=== PATIENT | male | born 1960 | race Caucasian/White ===

== ENCOUNTER 2019-04-26 08:05 | Outpatient (REF) | payer BC, SELFPAY ==
[2019-04-26 12:29] LABS: Abs Immature Grans 0.01 k/cumm (0.0-0.09); Absolute Basophil Count 0.03 k/cumm (0.0-0.2); Absolute Eosinophil Count 0.12 k/cumm (0.0-0.7); Absolute Monocyte Count 1.04 k/cumm (0.11-0.7); Absolute Neutrophil Count 5.03 k/cumm (1.2-6.7); Basophils % 0.4; Eosinophils % 1.5; HCT 52.3 % (40.0-50.0); HGB 17.8 g/dL (13.5-17.5); Immature Grans % 0.1; Lymphocytes % 21.4; Mean Corpuscular Volume 96.9 fL (80-95); Mean Platelet Volume 10.7 fL (8.0-11.0); Monocytes % 13.1; Neutrophils % 63.5; Platelet Count 183 x1000/uL (130-400); RBC Distribution Width 13.1 % (11.8-14.1); White Blood Cell Count 7.93 k/cumm (4.4-10.8)
[2019-04-26 12:52] LABS: ALT 95 U/L (12-78); AST 36 U/L (15-37); Albumin 3.8 g/dL (3.4-5.0); Alkaline Phosphatase 80 U/L (46-116); Anion Gap 10.5 mmol/L (3-11); BUN 21 mg/dL (7-18); Bilirubin, Total 0.5 mg/dL (0.2-1.0); CO2 26.5 mmol/L (21.0-32.0); CREATININE 0.88 mg/dL (0.70-1.30); Calcium 8.6 mg/dL (8.5-10.1); Calculated LDL 114; Chloride 104 mmol/L (98-107); Cholesterol 172 mg/dL (50-200); Glucose 118 mg/dL (70-100); HDL Cholesterol 52 mg/dL (40-60); Potassium 4.7 mmol/L (3.5-5.1); Sodium 141 mmol/L (136-145); Total Protein 7.1 g/dL (6.4-8.2); Triglyceride 33 mg/dL (30-150)
== END 2019-04-26 08:25 ==
LOC: NCHCN 08:05
PROVIDERS: PCP Nurse Practitioner Family; Visit Provider Nurse Practitioner Family
DX: Z13.1 Encounter for screening for diabetes mellitus (principal); Z13.228 Encounter for screening for other metabolic disorders; Z13.220 Encounter for screening for lipoid disorders; Z00.00 Encounter for general adult medical examination without abnormal findings
CPT/HCPCS: 80053; 80061; 83721; 85025

== ENCOUNTER 2019-06-14 19:36 | Outpatient (REF) | payer BC, SELFPAY ==
[2019-06-14 18:29] LABS: BUN 17 mg/dL (7-18); CREATININE 0.96 mg/dL (0.70-1.30); Calcium 9.1 mg/dL (8.5-10.1); Chloride 102 mmol/L (98-107); Glucose 97 mg/dL (70-100); Potassium 3.8 mmol/L (3.5-5.1); Sodium 141 mmol/L (136-145)
== END 2019-06-14 19:56 ==
LOC: NCHCN 19:36
PROVIDERS: PCP Nurse Practitioner Family; Visit Provider Nurse Practitioner Family
DX: I10 Essential (primary) hypertension (principal); E78.2 Mixed hyperlipidemia
CPT/HCPCS: 80048

== ENCOUNTER 2019-08-16 08:56 | Outpatient (REF) | payer BC, SELFPAY ==
[2019-08-16 18:56] LABS: Anion Gap 12.7 mmol/L (3-11); BUN 14 mg/dL (7-18); CO2 25.3 mmol/L (21.0-32.0); CREATININE 0.86 mg/dL (0.70-1.30); Calcium 8.7 mg/dL (8.5-10.1); Chloride 100 mmol/L (98-107); Glucose 112 mg/dL (70-100); Sodium 138 mmol/L (136-145)
== END 2019-08-16 09:16 ==
LOC: NCHCN 08:56
PROVIDERS: PCP Nurse Practitioner Family; Visit Provider Nurse Practitioner Family
DX: I10 Essential (primary) hypertension (principal)
CPT/HCPCS: 80048

== ENCOUNTER 2020-05-13 08:10 | Outpatient (REF) | payer BC, SELFPAY ==
[2020-05-13 18:50] LABS: Anion Gap 12.3 mmol/L (3-11); BUN 19 mg/dL (7-18); CO2 22.7 mmol/L (21.0-32.0); CREATININE 0.88 mg/dL (0.70-1.30); Calcium 9.4 mg/dL (8.5-10.1); Calculated LDL 83 mg/dL (<100); Chloride 103 mmol/L (98-107); Cholesterol 149 mg/dL (<200); Glucose 125 mg/dL (74-106); HDL Cholesterol 58 mg/dL (40-60); Potassium 4.7 mmol/L (3.5-5.1); Sodium 138 mmol/L (136-145); Triglyceride 42 mg/dL (<150)
[2020-05-13 18:51] LABS: HGB 17.7 g/dL (13.5-17.5); Mean Corpuscular Hemoglobin 33.2 pg (27.0-33.0); Mean Corpuscular Volume 97.6 fL (80-95); Mean Platelet Volume 10.9 fL (8.0-11.0); Platelet Count 205 x1000/uL (130-400); RBC 5.33 m/cumm (4.50-6.00); RBC Distribution Width 13.9 % (11.8-14.1); White Blood Cell Count 6.94 k/cumm (4.4-10.8)
== END 2020-05-13 08:30 ==
LOC: NCHCN 08:10
PROVIDERS: PCP Nurse Practitioner Family; Visit Provider Nurse Practitioner Family
DX: E78.2 Mixed hyperlipidemia (principal); I10 Essential (primary) hypertension
CPT/HCPCS: 80048; 80061; 85027

== ENCOUNTER 2020-06-26 00:52 | Outpatient (CLI) | payer BC, SELFPAY ==
--- NOTE | 2020-06-26 | DI.CTLCSR_ITS ---
EXAM: CT CHEST LUNG CANCER SCREEN CLINICAL HISTORY: TOBACCO DEPENDENT,F17.200,SCREENING FOR LUNG CA TECHNIQUE: Imaging Protocol: Axial computed tomography images with coronal and sagittal reformatted images were created and reviewed COMPARISON: No exams were available for comparison FINDINGS: Tracheobronchial tree: Patent where visualized. Mediastinum and Meryl: No dominant adenopathy or fluid collection. Pulmonary parenchyma: No consolidation or dominant measurable mass. No significant emphysematous or f ibrotic changes. Lung Nodules: There are several tiny nodule in the left upper lobe measuring 2-3 cm. There is a 5 mi llimeter not nodule versus scarring at the minor fissure. Pleura: No effusion or pneumothorax. Heart: The heart is not dilated. Mild coronary artery calcifications are seen. Aorta: Thoracic aorta non-dilated. Mild calcifications Upper abdomen: Unremarkable. Bones: Mild degenerative disc changes. Soft Tissues: Unremarkable. IMPRESSION: Several tiny left upper lobe nodules. No suspicious nodules. Lung RADS Cat 2 - Benign Appearance / Behavior: Nodules with a very low likelihood of becoming a clin ically active cancer due to size or lack of growth modifier S Lung-RADS 1.0 CATEGORIES: Category 0 - Prior chest CT exam(s) being located for comparison. Category 1 - Annual screening in 12 months. No nodules or definitely benign nodules. Category 2 - Annual screening in 12 months. Benign appearance. Nodules with low likelihood of becomin g active cancer. Category 3 - 6-month follow-up. Probably benign. Short-term follow-up suggested. Nodules with low lik elihood of becoming active cancer. Category 4A - 3-month follow-up and CT/PET if >8 mm in size. Suspicious finding. Findings which requi re additional testing. Category 4B - Findings which require additional testing and tissue sampling. Suspicious finding. C Added to Any of the Above - History of prior lung cancer screening. S Added to Any of the Above - Significant unexpected other finding. RADIATION DOSE DELIVERED: 88.41mGy.cm Total DLP DATA REPOSITORY: All CT scans at this facility are submitted to the National Radiology Data Registry (NRDR) Dose Index Registry (DIR) with the [employer] (ACR). RADIATION OPTIMIZATION: All CT scans at this facility use at least one of these dose optimization te chniques: automated exposure control; mA and/or kV adjustment per patient size (includes targeted exa ms where dose is matched to clinical indication); or iterative reconstruction.
== END 2020-06-26 01:12 ==
PROVIDERS: PCP Nurse Practitioner Family; Visit Provider Family Medicine
DX: Z12.2 Encounter for screening for malignant neoplasm of respiratory organs (principal); F17.200 Nicotine dependence, unspecified, uncomplicated; R91.8 Other nonspecific abnormal finding of lung field
CPT/HCPCS: G0297

== ENCOUNTER 2020-08-08 06:46 | Day surgery (SDC) | payer BC, SELFPAY ==
[2020-08-08 07:00] VITALS: BP 138/82; PULSE 79; RESP 16; TEMP 37.1; O2SAT 97
[2020-08-08] MEDS: Lactated Ringers 1,000 ML 80 ML IV (07:30)
--- NOTE | 2020-08-08 08:27 | BOWEL_PTH ---
PATIENT: Norm Berry LOC: [facility] U#:[id number] AGE/SX: 60/M ROOM: RE08/08/[address]: Rebekah Hargrove MD : [id number] BED: DIS: 08/08/2020 SPEC #: [id number] RECD: 08/08/20 12:42 STATUS: VERO REQ #: [id number] HILARIO: 08/08/20 08:[address]: Rebekah Hargrove DEPT: Surgical Specimen RECD BY: Ronda Carrington ENTERED: 08/08/20 12:43 SP TYPE: Bowel OTHR DR: Enrique Giullen Tissues: 1 - BIOPSY BOWEL Procedures: GROSS AND MICRO LEVEL 4 Comments: [id number]
--- NOTE | 2020-08-08 08:43 | W.PM.DSUDISC ---
Discharge Plan Disposition Patient Disposition: HOME Condition: Good Discharge Details Reason For Visit: Colonoscopy Attending Provider: Rebekah Hargrove Primary Care Provider: Enrique Guillen Home Meds and New Rx's Prescriptions: Continued amlodipine 5 mg tablet 5 mg PO DAILY RF: 0 lisinopril 10 mg tablet 10 mg PO DAILY RF: 0 simvastatin 20 mg tablet 20 mg PO QHS RF: 0 hydrochlorothiazide 25 mg tablet 25 mg PO DAILY RF: 0 nicotine [Nicoderm CQ] 14 mg/24 hr patch 24 hour 1 patch TD DAILY RF: 0 Discharge Instructions Additional Instructions: Findings: One large polyp was removed. My office will contact you with biopsy results. Follow up: Plan for a colonoscopy in 3 years depending on biopsy results. Please call if you develop: fevers >101.5 Nausea or Vomiting Abdominal pain that is not transient DAY SURGERY UNIT POST COLONOSCOPY INSTRUCTIONS 1. Because there will be medication in your system for the next 24 hours, you may feel a little sleepy. Your coordination will be affected. Therefore: a. Do not drive or operate dangerous equipment for 24 hours. b. Do not drink alcohol beverages for 24 hours (not even beer). c. Plan to go home and rest for the day. 2. Generally there are no restrictions on your activity after a day or so has gone by, but you may feel a bit fatigued for a few days. 3 After you arrive home you may have a light meal and return to a normal diet as you can tolerate it without feeling sick to your stomach. 4. After surgery, you may feel pain or discomfort. This should be only transient, but if it persists please contact your doctor. 5. If there are any questions regarding the findings of your procedure, please feel free to contact your doctor. 6. If you are unable to contact your doctor with a problem, contact the hospital at [phone]. 7. Continue all your regular medications unless directed otherwise. I understand the above instructions and have no questions. Signature of Patient or Responsible Adult Escort Date/Time Name of Responsible Adult Escort Signature of Nurse Date/Time Activity:: Activity as Tolerated Diet:: As Tolerated Discharge Orders Discharge Orders: Discharge Order (Routine); Ordered 08/08/20 Ordered By: Rebekah Hargrove DS: Diagnosis Discharge Diagnosis (1) Colon polyp: Status: Acute
--- NOTE | 2020-08-08 08:44 | W.COLOREPORT ---
Date of service: 08/08/20 Time of Service: 08:44 Colonoscopy Report Date of procedure: 08/08/20 Pre-op diagnosis general: Screening Post-op diagnosis procedure note: other (Polyp at 20cm) Procedure: Colonoscopy with snare polypectomy Surgeon: Rebekah Hargrove Anesthesia proc note operative: MAC Indications: This 60 year old man presents for his first screening colonoscopy. No FH of colon cancer, no symptoms. Procedure Description: The patient was placed in the left Trevino position. Propofol was titrated to sedation. Digital rectal examination revealed no abnormalities. The scope was advanced to the cecum without difficulty. The ileocecal valve and appendiceal orifice were clearly identified. The prep was good. The scope was slowly withdrawn over the course of greater than 6 minutes with no abnormalities seen in the ascending, transverse, descending colon. In the distal sigmoid colon at 20 cm, a slightly greater than 1cm polyp was removed with the hot snare. There was a short stalk of normal tissue. A hemostatic clip was applied as a precaution. The rectum was normal including on retroflexed view. The patient tolerated the procedure well and was stable to recovery. Depending on the polyp pathology, it is anticipated he will need a colonoscopy in 3 years.
[2020-08-08 09:12] VITALS: BP 124/83; PULSE 58; RESP 16; TEMP 36.2; O2SAT 100
== END 2020-08-08 09:28 | disposition home or self-care (01) ==
PROVIDERS: PCP Nurse Practitioner Family; Visit Provider Surgery
PROC: 0DJD8ZZ Inspection of Lower Intestinal Tract, Via Natural or Artificial Opening Endoscopic (ICD-10-PCS; CPT 45378; principal; 2020-08-08 08:15)
DX: Z12.11 Encounter for screening for malignant neoplasm of colon (principal); D12.5 Benign neoplasm of sigmoid colon
CPT/HCPCS: 45385; 88305

== ENCOUNTER 2021-03-06 10:28 | Outpatient (REF) | payer BC, SELFPAY ==
[2021-03-06 15:51] LABS: ALT 96 U/L (16-63); AST 27 U/L (15-37); Albumin 3.5 g/dL (3.4-5.0); Alkaline Phosphatase 66 U/L (46-116); Anion Gap 7.3 mmol/L (3-11); BUN 17 mg/dL (7-18); Bilirubin, Total 0.5 mg/dL (0.2-1.0); CO2 27.7 mmol/L (21.0-32.0); CREATININE 0.9 mg/dL (0.70-1.30); Chloride 102 mmol/L (98-107); Glucose 170 mg/dL (74-106); Potassium 3.8 mmol/L (3.5-5.1); Sodium 137 mmol/L (136-145)
[2021-03-09 11:00] LABS: HIV-1/2 Ag & Ab Screen Negative (Negative)
[2021-03-09 11:03] LABS: Hepatitis C Ab w Rflx HCV PCR Negative (Negative)
== END 2021-03-06 10:29 | disposition home or self-care (01) ==
LOC: NCHCN 10:28
PROVIDERS: PCP Nurse Practitioner Family; Visit Provider Nurse Practitioner Family
DX: F17.200 Nicotine dependence, unspecified, uncomplicated (principal); I10 Essential (primary) hypertension; R79.89 Other specified abnormal findings of blood chemistry; Z11.4 Encounter for screening for human immunodeficiency virus [HIV]; Z11.59 Encounter for screening for other viral diseases
CPT/HCPCS: 80053; 86803; 87389

== ENCOUNTER 2021-06-29 01:00 | Outpatient (CLI) | payer BC, SELFPAY ==
--- NOTE | 2021-06-29 | DI.CTLCSR_ITS ---
Exam(s) CT CHEST LUNG CANCER SCREEN EXAM: CT CHEST LUNG CANCER SCREEN CLINICAL HISTORY: CURRENT TOBACCO DEPENDENCE, F17.200. TECHNIQUE: Imaging Protocol: Low Dose Technique CONTRAST MATERIAL: None COMPARISON: CT CT CHEST LUNG CANCER SCREEN from 06/26/2020 FINDINGS: CHEST: LUNGS: There is an unchanged 2 millimeter nodule in the left upper lobe. . Also an unchanged 2-3 mi llimeter pleural base nodule in the superior lingular segment of the left lung. Platelike atelectasi s in the inferior lingular segment noted so unchanged. No new focal left lung findings nor pleural e ffusion. In the opposite-right lung there is a small focus of pleural thickening over the posterior aspect of the right upper lobe. Pseudo nodule at the reflection of the pleura between the right upper and righ t middle lobes is again noted, unchanged, measuring 5 millimeters. MEDIASTINUM: There is no obvious hilar nor mediastinal adenopathy. CARDIAC: Heart size is normal. There is no pericardial effusion.Coronary artery calcification in the LAD is noted. Caliber of the thoracic aorta is upper normal. OTHER: No adrenal masses. No splenomegaly. OSSEOUS: No significant osseous lesions.. IMPRESSION: 1. Stable benign-appearing lung findings as described above. Minimal if any significant change alexandra red to the prior study performed 06/26/2020, 1 year ago. 2. No pleural effusions nor intrathoracic adenopathy. Coronary artery calcification is noted. 3. Lung RADS Cat 2 - Benign Appearance / Behavior: Nodules with a very low likelihood of becoming a c linically active cancer due to size or lack of growth Lung-RADS 1.0 CATEGORIES: Category 0 - Prior chest CT exam(s) being located for comparison. Category 1 - Annual screening in 12 months. No nodules or definitely benign nodules. Category 2 - Annual screening in 12 months. Benign appearance. Nodules with low likelihood of becomin g active cancer. Category 3 - 6-month follow-up. Probably benign. Short-term follow-up suggested. Nodules with low lik elihood of becoming active cancer. Category 4A - 3-month follow-up and CT/PET if >8 mm in size. Suspicious finding. Findings which requi re additional testing. Category 4B - Findings which require additional testing and tissue sampling. Modifier S- Potentially clinically significant findings (non lung cancer) RADIATION DOSE DELIVERED: 84.23mGy.cm Total DLP 1.84mGy CTDIvol DATA REPOSITORY: All CT scans at this facility are submitted to the National Radiology Data Registry (NRDR) Dose Index Registry (DIR) with the [employer] (ACR). RADIATION OPTIMIZATION: All CT scans at this facility use at least one of these dose optimization te chniques: automated exposure control; mA and/or kV adjustment per patient size (includes targeted exa ms where dose is matched to clinical indication); or iterative reconstruction.
== END 2021-06-29 01:20 ==
PROVIDERS: PCP Nurse Practitioner Family; Visit Provider Nurse Practitioner Family
DX: F17.210 Nicotine dependence, cigarettes, uncomplicated (principal); Z12.2 Encounter for screening for malignant neoplasm of respiratory organs
CPT/HCPCS: 71271